=== PATIENT | male | born 1990 | race Caucasian/White ===

== ENCOUNTER → 2020-05-15 10:20 | Outpatient (BNVA) | payer OTHER, SELFPAY | PROVIDERS: PCP Internal Medicine; Referring Provider Internal Medicine; Visit Provider Nurse Practitioner Family | DX: Z76.89 Persons encountering health services in other specified circumstances (principal) ==

== ENCOUNTER 2020-06-25 14:58 | Outpatient (REF) | payer OTHER, SELFPAY ==
--- NOTE | 2020-06-25 | MR_ITS ---
EXAMINATION: MR BRAIN WITHOUT AND WITH CONTRAST CLINICAL INFORMATION: Brain lesion. COMPARISON: None TECHNIQUE: Multiplanar, multisequence MRI of the brain was obtained before and after the intravenous administration of 10 mL Gadavist. FINDINGS: Normal No focal reduced diffusion is seen to suggest acute or subacute cerebral ischemia. There is an 8 mm T2 FLAIR lesion in the right anterior central semiovale on FLAIR sequences. There is no corresponding enhancement seen. The lesion is not visualized on pre or postcontrast T1 imaging. No additional lesions seen. No intracerebral edema, intra-axial blood products, midline shift, or extra-axial collection is visualized. No pathologic enhancement is appreciated on postcontrast sequences. The ventricles and sulcal spaces appear normal. Normal arterial and venous vascular flow voids are present. There is a small retention cyst, left maxillary sinus. The rest of the paranasal sinuses are well aerated and clear. MR/MR head/brain wo/w con IMPRESSION: 1. An 8 mm T2 FLAIR lesion in the anterior right centrum semiovale without enhancement. This is nonspecific and may represent old contusion, gliosis. There is no mass effect or edema. No major change from previous study. 2. There is no acute process.
== END 2020-06-25 14:59 | disposition home or self-care (01) ==
LOC: HO.MRI 14:58
PROVIDERS: PCP Internal Medicine; Visit Provider Psychiatry & Neurology Neurology
DX: G93.9 Disorder of brain, unspecified (principal)
CPT/HCPCS: 70553; A9585

== ENCOUNTER → 2020-08-13 08:08 | Outpatient (BNVA) | payer OTHER, SELFPAY | PROVIDERS: PCP Internal Medicine; Visit Provider Internal Medicine | DX: I48.0 Paroxysmal atrial fibrillation (principal); R55 Syncope and collapse | CPT/HCPCS: 93005 ==

== ENCOUNTER 2020-08-20 09:10 | Day surgery (SDC) | payer OTHER, SELFPAY ==
[2020-08-14 12:20] VITALS: BMI 32.8
--- NOTE | 2020-08-19 10:27 | P.CONAN_ITS ---
Documented by User: Theresa Azar 08/19/20 10:31 HPI - Anesthesia Eval Consult details Narrative: 29yo M for Transesophageal Echocardiogram 2 syncopal episodes with cardiac and neuro w/u revealed: afib on 30 day holter; brain lesion of unclear eitology on Brain MRI. R/O embolic. COUNTS INCLUDE 234 BEDS AT THE [facility] Past Medical History Medical History Arthritis Brain lesion Chronic back pain Obesity PAF (paroxysmal atrial fibrillation) Syncope Family History Family History Father No problems noted. Mother No problems noted. Surgical History Surgical History (Updated 08/20/20 @ 09:22 by Christen Sigala RN) Hx of wisdom tooth extraction No pertinent past surgical history Social History Social History Are you a primary family member caretaker to a significant other at home: No Do you presently have visiting nurse or other home services: No Smoking Status: Former smoker Smoking Quit Date: 2017 Use of substances other than those prescribed or required for medical reasons: Yes Substance Use Frequency: Weekly Advance Directives: No Advance Directives Information Provided: No Advance Directives on File: No Recently lost weight without trying: No Meds Allergies Allergy/AdvReac Type Severity Reaction Status Date / Time No Known Allergies Allergy Verified 08/20/20 09:22 [No Known Allergies*] Home Medications Medication Instructions Recorded Confirmed Type tramadol 50 mg tablet 50 mg PO TID PRN 05/15/20 08/14/20 History aspirin 81 mg tablet,delayed 81 mg PO DAILY 08/13/20 08/14/20 History release baclofen 20 mg tablet 20 mg PO BID tab 08/13/20 08/14/20 History Exam Exam Date and Time: August 19, 2020 1027 Height,Weight and Vital Signs: Height 6 ft 6 in Weight 128.99 kg Narrative Narrative: EKG 08/2020: NSR ECHO 03/2020: Nml study Assessment and Plan Assessment Anesthesia Assessment: Chart Reviewed Documented by User: Renetta Radha 08/20/20 11:01 COUNTS INCLUDE 234 BEDS AT THE [facility] Past Medical History Medical History Arthritis Brain lesion Chronic back pain Obesity PAF (paroxysmal atrial fibrillation) Syncope Family History Family History Father No problems noted. Mother No problems noted. Surgical History Surgical History (Updated 08/20/20 @ 09:22 by Christen Sigala RN) Hx of wisdom tooth extraction No pertinent past surgical history Social History Social History Are you a primary family member caretaker to a significant other at home: No Do you presently have visiting nurse or other home services: No Smoking Status: Former smoker Smoking Quit Date: 2017 Use of substances other than those prescribed or required for medical reasons: Yes Substance Use Frequency: Weekly Advance Directives: No Advance Directives Information Provided: No Advance Directives on File: No Recently lost weight without trying: No Meds Allergies Allergy/AdvReac Type Severity Reaction Status Date / Time No Known Allergies Allergy Verified 08/20/20 09:22 [No Known Allergies*] Home Medications Medication Instructions Recorded Confirmed Type tramadol 50 mg tablet 50 mg PO TID PRN 05/15/20 08/14/20 History aspirin 81 mg tablet,delayed 81 mg PO DAILY 08/13/20 08/14/20 History release baclofen 20 mg tablet 20 mg PO BID tab 08/13/20 08/14/20 History Exam Airway Mallampati Class: II TM Dist: >3cm Neck ROM: Full Heart: RRr Lungs: CTA BL Assessment and Plan Assessment Anesthesia Assessment: Anesthesia Plan Discussed and Chart Reviewed Final Anesthetic Review NPO: Yes ASA Class: II Final Preanesthetic Review: Meds/Allgs Chart Reviewed and Consent Obtained/Reviewed Patient Risk: Intermediate Procedure Risk: Intermediate Anesthetic Plan Anesthetic Plan: MAC: Disposition: Standard PACU
[2020-08-20 09:25] VITALS: BP 145/91; PULSE 76; RESP 16; TEMP 35.9; O2SAT 98
[2020-08-20] MEDS: Lactated Ringers 1,000 ML 100 ML IVCONT (09:35)
--- NOTE | 2020-08-20 09:46 | PC.NURSE ---
HR CAME DOWN TO 38 AT THE LOWEST, CLAMMY JUST A FEW MINUTES AFTER IV. LAID FLAT. BP DOWN TO 119/71. IVF OPENED WIDE AND COOL CLOTH TO FOREHEAD. FEELING BETTER AFTER A FEW MINUTES. BP RECHECK AFTER 5 MINUTES IS 122/74. HR BACK UP TO 58. SAT BACK UP.
--- NOTE | 2020-08-20 09:55 | CA_ITS ---
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 After informed consent was obtained, the patient was taken to the operating room. He was positioned appropriately. A bite block was placed. Anesthesiologist was also present for the procedure. Initially, attempted conscious sedation but he was requiring a significant amount of medication. Hence also considering the large body size, it was felt that he will be better served by intubation. Hence underwent endotracheal intubation. Subsequently, the transesophageal echocardiographic probe was placed with the help of anesthesiologist with direct visualization of the oral cavity oral cavity and upper airway. The usual 2D, spectral Doppler as well as color Doppler images were obtained. A bubble study was performed. ??? There is no evidence of cardiac source of emboli. Findings Left Ventricle Normal left ventricular cavity size. The left ventricular systolic function is normal. The visually estimated ejection fraction is between 55-60%. There is no evidence of regional wall motion abnormalities. Right Ventricle Normal right ventricular cavity size and systolic function. Atria There is lipomatous hypertrophy of the interatrial septum. The left atrial appendage is normal in size and flow. There is no evidence of a thrombus in the left atrial appendage. There is no evidence of a patent foramen ovale. Color-flow did not show any interatrial shunting. Bubble study was also negative x3 but there was inadequate opacification from the bubbles. Aortic Valve There is a normal trileaflet aortic valve. There is no aortic valve stenosis. There is no aortic valve regurgitation. Mitral Valve The mitral valve appears normal. There is mild mitral valve regurgitation. There is no mitral valve stenosis. Slight prominence of chordal structures but within normal limits. Pulmonic Valve The pulmonic valve was not well visualized. Tricuspid Valve Normal tricuspid valve structure. There is trace tricuspid valve regurgitation. Great Vessels The aortic annulus, asc aorta, and aortic arch are normal in size. Venous The left lower and left upper pulmonary veins are normal. Pericardium/Pleural There is no evidence of pericardial effusion. Updated by Koby Ocasio on 05:49 PM with Status of Final Koby Ocasio MD electronically signed on 08/20/2020 5:49:51 PM with status of Final
--- NOTE | 2020-08-20 10:26 | MHC.SHP ---
Pre-Procedural Eval Section B Chief Complaint: paroxysmal afib Allergies: Allergies Allergy/AdvReac Type Severity Reaction Status Date / Time No Known Allergies Allergy Verified 08/20/20 09:22 [No Known Allergies*] Plan I have reviewed the history and physical and performed a pertinent physical examination on my patient. No changes have occurred unless specified.
[2020-08-20 12:30] VITALS: BP 133/74; PULSE 78; RESP 18; TEMP 36.3; O2SAT 100
[2020-08-20 12:35] VITALS: BP 129/66; PULSE 77; RESP 16; O2SAT 100
[2020-08-20 12:40] VITALS: BP 141/83; PULSE 74; RESP 18; O2SAT 100
[2020-08-20 12:45] VITALS: BP 152/65; PULSE 80; RESP 20; O2SAT 100
[2020-08-20 13:00] VITALS: BP 142/72; PULSE 87; RESP 20; TEMP 36.4; O2SAT 100
--- NOTE | 2020-08-20 13:55 | HO.POSTANES ---
Post Anesthesia Evaluation Post Anesthesia Evaluation Vital Signs: Vital Signs Temp Pulse Resp BP Pulse Ox 08/20/20 13:00 97.6 F 87 20 142/72 H 100 08/20/20 12:45 80 20 152/65 H 100 08/20/20 12:40 74 18 141/83 H 100 08/20/20 12:35 77 16 129/66 100 08/20/20 12:30 97.4 F 78 18 133/74 100 08/20/20 09:25 96.6 F L 76 16 145/91 H 98 Anesthesia: General Endotracheal-GETA Mental Status: Awake Pain Control: Satisfactory Nausea/Vomiting: None Hydration: Adequate Anesthesia-Related Issues: No Anes. Related Issues
== END 2020-08-20 13:30 | disposition home or self-care (01) ==
PROVIDERS: PCP Internal Medicine; Visit Provider Internal Medicine
PROC: (CPT 93312; principal; 2020-08-20 10:50)
DX: I48.0 Paroxysmal atrial fibrillation (principal); R55 Syncope and collapse; G93.9 Disorder of brain, unspecified
CPT/HCPCS: 93312; J0330; J1100; J2250

== ENCOUNTER → 2020-09-03 09:00 | Outpatient (REF) | payer OTHER, SELFPAY | LOC: HO.SL 09:00 | PROVIDERS: PCP Internal Medicine; Visit Provider Internal Medicine | DX: G47.33 Obstructive sleep apnea (adult) (pediatric) (principal); R55 Syncope and collapse | CPT/HCPCS: 95806 ==

== ENCOUNTER → 2020-11-18 09:57 | Outpatient (BNVA) | payer OTHER, SELFPAY | PROVIDERS: PCP Internal Medicine; Visit Provider Internal Medicine ==

== ENCOUNTER 2021-04-27 14:55 | Outpatient (REF) | payer OTHER, SELFPAY | END 2021-04-27 14:56 | disposition home or self-care (01) | LOC: HO.LAB 14:55 | PROVIDERS: PCP Internal Medicine; Visit Provider Internal Medicine | DX: Z20.822 Contact with and (suspected) exposure to COVID-19 (principal) | CPT/HCPCS: C9803; U0003; U0005 ==

== ENCOUNTER → 2021-06-16 14:26 | Outpatient (BNVA) | payer OTHER, SELFPAY | PROVIDERS: PCP Internal Medicine; Visit Provider Internal Medicine ==